=== PATIENT | female | born 1970 | race Native Hawaiian/Other Pacific Islander ===

== ENCOUNTER 2018-11-26 08:33 | Outpatient (CLI) | payer OTHER | END 2018-11-26 08:34 | disposition short-term general hospital (02) | LOC: AMB 08:33 | DX: G40.89 Other seizures (principal) | CPT/HCPCS: A0425; A0429 ==

== ENCOUNTER 2018-11-26 08:42 | Emergency (ER) | payer OTHER ==
[~2018-11-26] VITALS: Ht 154.9 cm; Wt 61.2 kg
[2018-11-26 08:42] VITALS: TEMP 98.4
[2018-11-26 09:50] LABS: POTASSIUM 3.7 mmol/L (3.6-5.2)
[2018-11-26 10:07] LABS: PLATELET COUNT 461 K/uL (152-353)
[2018-11-26 11:02] VITALS: BP 136/89
== END 2018-11-26 11:02 | disposition home or self-care (01) ==
LOC: ED 08:42
PROVIDERS: Family Medicine
DX: R56.9 Unspecified convulsions (principal); G93.0 Cerebral cysts
CPT/HCPCS: 36415; 80053; 84439; 84443; 85027; 96374; 99284; J2405

== ENCOUNTER 2018-11-27 09:31 | Outpatient (CLI) | payer OTHER | END 2018-11-27 23:16 | disposition home or self-care (01) | LOC: MRI 09:31 | DX: R56.9 Unspecified convulsions (principal) | CPT/HCPCS: A9576 ==

== ENCOUNTER 2019-02-19 10:17 | Day surgery (SDC) | payer OTHER | END 2019-02-19 10:55 | disposition home or self-care (01) | LOC: OR 10:17 | PROC: 3E0R33Z Introduction of Anti-inflammatory into Spinal Canal, Percutaneous Approach (ICD-10-PCS; principal; 2019-02-19) | PROC: B01BYZZ Fluoroscopy of Spinal Cord using Other Contrast (ICD-10-PCS; 2019-02-19) | DX: M50.121 Cervical disc disorder at C4-C5 level with radiculopathy (principal) | CPT/HCPCS: J1020 ==

== ENCOUNTER 2019-03-18 08:05 | Day surgery (SDC) | payer OTHER ==
[~2019-03-18] VITALS: Ht 157.5 cm; Wt 59.0 kg
== END 2019-03-18 08:55 | disposition home or self-care (01) ==
LOC: OR 08:05
PROC: 3E0R33Z Introduction of Anti-inflammatory into Spinal Canal, Percutaneous Approach (ICD-10-PCS; principal; 2019-03-18)
PROC: B01BYZZ Fluoroscopy of Spinal Cord using Other Contrast (ICD-10-PCS; 2019-03-18)
DX: M50.11 Cervical disc disorder with radiculopathy, high cervical region (principal)

== ENCOUNTER 2020-02-23 13:54 | Outpatient (CLI) | payer OTHER ==
[2020-02-23 14:34] LABS: PLATELET COUNT 359 K/uL (152-353)
== END 2020-02-23 22:07 | disposition home or self-care (01) ==
LOC: LAB 13:54
PROVIDERS: Pain Medicine Interventional Pain Medicine
DX: D72.819 Decreased white blood cell count, unspecified (principal)
CPT/HCPCS: 36415; 85002; 85027

== ENCOUNTER 2020-04-28 12:19 | Outpatient (CLI) | payer OTHER ==
[2020-04-28 13:51] LABS: POTASSIUM 4.5 mmol/L (3.6-5.2)
== END 2020-04-28 21:30 | disposition home or self-care (01) ==
LOC: LAB 12:19
PROVIDERS: Internal Medicine Cardiovascular Disease
DX: R06.00 Dyspnea, unspecified (principal); R60.0 Localized edema
CPT/HCPCS: 36415; 80048; 80076; 83880

== ENCOUNTER 2020-06-01 09:07 | Outpatient (CLI) | payer OTHER | END 2020-06-01 20:24 | disposition home or self-care (01) | LOC: MAMMO 09:07 | DX: Z12.31 Encounter for screening mammogram for malignant neoplasm of breast (principal) ==

== ENCOUNTER 2020-07-12 12:39 | Outpatient (CLI) | payer OTHER | END 2020-07-12 23:27 | disposition home or self-care (01) | LOC: MRI 12:39 | DX: M50.10 Cervical disc disorder with radiculopathy, unspecified cervical region (principal) ==

== ENCOUNTER 2020-07-30 11:15 | Outpatient (CLI) | payer OTHER | END 2020-07-30 19:34 | disposition home or self-care (01) | LOC: RAD 11:15 | PROVIDERS: ATTEND Orthopaedic Surgery | DX: M25.531 Pain in right wrist (principal) ==

== ENCOUNTER 2020-11-01 11:27 | Outpatient (CLI) | payer OTHER | END 2020-11-01 19:25 | disposition home or self-care (01) | LOC: US 11:27 | PROVIDERS: ATTEND Internal Medicine | DX: E04.8 Other specified nontoxic goiter (principal) ==